=== PATIENT | male | born 1990 | race Caucasian/White ===

== ENCOUNTER 2022-06-08 21:56 | Emergency (ER) | payer SELFPAY ==
[2022-06-08 21:56] VITALS: BP 174/89; PULSE 109; RESP 18; TEMP 36.9; O2SAT 99; BMI 23.8
--- NOTE | 2022-06-08 21:58 | CRLHL7_ITS ---
For Patients: As a result of the Cures Act, medical imaging exams and procedure reports are released immediately into your electronic medical record. You may view this report before your referring provider. If you have questions, please contact your health care provider. INDICATION: Fall, ETOH. TECHNIQUE: CT cervical spine without contrast. COMPARISON: None. FINDINGS: Vertebrae: Alignment is normal. There are no fractures or suspicious bony lesions. Discs and facet joints: Disc spaces and facets are within normal limits. Extraspinal findings: Prevertebral soft tissues, visualized airway, and visualized lungs are unremarkable. IMPRESSION: Unremarkable cervical spine CT. Please note that all CT scans at this facility use dose modulation, iterative reconstruction, and/or weight-based dosing when appropriate to reduce radiation dose to as low as reasonably achievable. Dictated by Negar Allen MD @ 06/08/2022 10:46:25 PM (Electronically Signed)
--- NOTE | 2022-06-08 21:59 | CRLHL7_ITS ---
For Patients: As a result of the Cures Act, medical imaging exams and procedure reports are released immediately into your electronic medical record. You may view this report before your referring provider. If you have questions, please contact your health care provider. INDICATION: Fall, ETOH. TECHNIQUE: CT head without contrast. COMPARISON: None. FINDINGS: CSF spaces: Within normal limits for age. Brain parenchyma and extra-axial spaces: The donato-white differentiation is normal. No sign of mass, hemorrhage, or midline shift. No extra-axial fluid collection. Posterior fossa arachnoid cyst. Skull base and calvarium: The visualized paranasal sinuses and mastoid air cells demonstrate no acute or significant findings. The visualized orbits are grossly unremarkable. No skull fractures. IMPRESSION: No intracranial hemorrhage identified. No skull fractures. Please note that all CT scans at this facility use dose modulation, iterative reconstruction, and/or weight-based dosing when appropriate to reduce radiation dose to as low as reasonably achievable. Dictated by Negar Allen MD @ 06/08/2022 10:44:57 PM (Electronically Signed)
--- NOTE | 2022-06-08 21:59 | CRLHL7_ITS ---
For Patients: As a result of the Cures Act, medical imaging exams and procedure reports are released immediately into your electronic medical record. You may view this report before your referring provider. If you have questions, please contact your health care provider. INDICATION: Chest injury from fall, alcohol intoxication TECHNIQUE: Chest radiograph 1 view COMPARISON: None FINDINGS: Mediastinum: The mediastinum is normal in appearance. The heart silhouette is normal in size and morphology. Lung: Both lungs are unremarkable in appearance. No sign of pleural effusion seen. No pneumothorax is identified. Bone and Soft tissue: Unremarkable for age. IMPRESSION: 1. No acute cardiopulmonary disease is seen. Dictated by: Pierre Lambert MD @ 06/08/2022 22:42:46 (Electronically Signed)
--- NOTE | 2022-06-08 22:12 | ED_ITS ---
HPI - General Adult General Chief complaint: Fall/Minor Trauma Stated complaint: FALL & ETOH Time Seen by Provider: 06/08/22 21:58 Source: patient and EMS Mode of arrival: EMS Limitations: altered mental status (Acute alcohol intoxication) History of Present Illness HPI narrative: 32-year-old male presenting via EMS after he was found wandering the streets of [place]. Patient states that he tripped and fell on his face. He is unwilling to give any more details about what happened. He states that he had ?enough to drink today?. He states that he is sober from any other drug use. Patient denies any pain. And again is unwilling to provide any other details of what happened tonight. Related Data Home Medications Medication Instructions Recorded Confirmed epinephrine 0.3 mg/0.3 mL 0.3 ml IM Q5-15M PRN 06/08/22 06/08/22 injection, auto-injector (EpiPen) Allergies Allergy/AdvReac Type Severity Reaction Status Date / Time Nolic And Derivatives Allergy Severe Anaphylaxis Verified 06/08/22 22:14 Penicillins Allergy Unknown Verified 06/08/22 22:14 Review of Systems Status of ROS: Reports: 10 or more systems reviewed and unremarkable except as noted in History and below [facility] Medical History Patient denies medical problems Exam Narrative: Exam Narrative: Well-nourished well-developed patient in no acute distress. Alert and oriented but clearly intoxicated. Answers questions appropriately and is cooperative, however again will not give any details about what happened tonight. No tangential or magical thinking noted. Patient speaks in full sentences without needing to catch his breath. He is speaking in breathing without any difficulty. His speech is slightly slurred. GCS is 15. He does have some obvious bleeding from his upper lip and his left upper cheek just under the eye. HEENT: Normocephalic. Pupils are equally round reactive to light. Extraocular muscles are intact. Conjunctivae are moist without any icterus noted. Moist mucous membranes. Posterior pharynx is normal. I do not see any trauma to the inside of the mouth, he does have crusty blood on his lips. He also has in blood from an abrasion of the upper lip. Lastly there is an abrasion of the upper left cheek that is oozing slightly. There are no claudy lacerations noted. He has no tenderness around the orbits or the bridge of the nose. There is no septal hematoma noted. He does have an abrasion that is superficial on top of the entire nose. There is no hemotympanum noted bilaterally. Neck is soft without any lymphadenopathy or thyromegaly. No masses are appreciated. He has no tenderness to palpation of the cervical spine. He has full range of motion with flexion, extension and side way bending. However given the amount of intoxication we did go ahead and place him in a cervical collar. Cardiovascular: Heart is regular rate and rhythm S1 and S2 are present without any murmurs. Lungs: Clear to auscultation bilaterally no wheezes rhonchi or rales are appreciated. Patient takes deep breaths without any discomfort. He has no tenderness to palpation of the anterior or lateral chest wall. Abdomen: Soft and nontender nondistended with normal bowel sounds. No guarding or rebound. No masses or organomegaly appreciated. Extremities: Bilateral lower extremities are without edema. Normal DP and PT pulses. He does have superficial abrasions to both knees. He also has abrasions to the top of both big toes. He has dried blood between the remainder of the toes with no evidence of broken skin. Skin: Well perfused. Back: Normal appearance. No tenderness over the cervical, thoracic or lumbar spine. Const: Vital Signs, click to edit/add: Vital Signs - 24 hr 06/08/22 21:56 Temperature 98.4 F Pulse Rate [Left P ulse Oximeter] 109 H Respiratory Rate 18 Blood Pressure [Ri ght Upper Arm] 174/89 H Pulse Oximetry 99 Oxygen Delivery Me thod Room Air Course Course Hospital Course: We proceeded with head CT, cervical spine CT, facial bones CT, and chest x-ray. All were unremarkable. Cervical collar was removed without incident. EKG, read by me, shows normal sinus rhythm with a pulse of 97. Labs showed elevated LFTs and blood alcohol of 0.39. UA and UDS pending at time of dictation. Vital Signs Vital signs: Initial Vital Signs Temperature 98.4 F 06/08/22 21:56 Temperature Source Temporal Artery Scan 06/08/22 21:56 Pulse Rate 109 H 06/08/22 21:56 Pulse Rhythm 06/08/22 21:56 Respiratory Rate 18 06/08/22 21:56 Blood Pressure 174/89 H 06/08/22 21:56 Blood Pressure Mean 117 06/08/22 21:56 Blood Pressure Position Semi-Fowlers 06/08/22 21:56 Pulse Oximetry 99 06/08/22 21:56 Oxygen Delivery Method 06/08/22 21:56 Vital Signs Temperature 98.4 F 06/08/22 21:56 Pulse Rate 109 H 06/08/22 21:56 Respiratory Rate 18 06/08/22 21:56 Blood Pressure 174/89 H 06/08/22 21:56 Pulse Oximetry 99 06/08/22 21:56 Oxygen Delivery Method 06/08/22 21:56 Temperature 98.4 F 06/08/22 21:56 Pulse Rate 109 H 06/08/22 21:56 Respiratory Rate 18 06/08/22 21:56 Blood Pressure 174/89 H 06/08/22 21:56 Pulse Oximetry 99 06/08/22 21:56 Oxygen Delivery Method 06/08/22 21:56 Medical Decision Making MDM Narrative Medical decision making narrative: 32-year-old male with acute alcohol intoxication status post fall, circumstances are unclear. Patient will remain in the ER for observation, IV fluids. Care transferred to oncoming physician. Lab Data Labs: Lab Results 06/08/22 06/08/22 Range/Units 22:40 22:40 WBC 7.29 (4.50-11.00) K/uL RBC 4.98 (4.30-5.90) m/uL Hgb 16.8 (13.5-17.5) gm/dL Hct 48.5 (37.0-53.0) % MCV 97 (80-100) fL MCH 34 (26-34) pg MCHC 35 (32-36) gm/dL RDW Coeff of Yessica 12.5 (11.5-15.5) % Plt Count 176 (140-440) K/uL Neut % (Auto) 64.2 (42.0-72.0) % Lymph % (Auto) 24.4 (20-44) % [place] % (Auto) 6.6 (0.0-11.0) % Eos % (Auto) 3.3 (0.0-7.0) % Baso % (Auto) 0.7 (0.0-3.0) % Neut # (Auto) 4.68 (1.7-7.0) K/uL Lymph # (Auto) 1.78 (0.90-2.90) K/uL [place] # (Auto) 0.50 (0.00-0.90) K/UL Eos # (Auto) 0.24 (0.00-0.50) K/uL Baso # (Auto) 0.05 (0.00-0.30) K/uL Abs Immat Gran (auto) 0.06 (0.00-0.30) K/uL Sodium 146 (135-149) mmol/L Potassium 3.7 (3.6-5.1) mmol/L Chloride 108 (96-114) mmol/L Carbon Dioxide 22 (20-32) mmol/L BUN 8 (5-24) mg/dL Creatinine 0.7 (0.5-1.5) mg/dL Estimated Creat Clear 179.40 Estimated GFR 127 ml/min Glucose 121 H (60-115) mg/dL Calcium 9.2 (8.4-10.6) mg/dL Total Bilirubin 1.6 H (0.1-1.5) mg/dL Direct Bilirubin 0.6 H (0.0-0.5) mg/dL AST 279 H (12-35) U/L ALT 200 H (4-50) U/L Alkaline Phosphatase 127 (40-150) U/L Total Protein 8.9 H (6.0-8.3) g/dL Albumin 5.2 H (3.3-5.0) g/dL Salicylates < 1.0 L (1.0-10) mg/dL Acetaminophen < 10.0 L (10.0-30.0) ug/mL Ethyl Alcohol 0.39 H* (0.01-0.03) % Imaging Data Chest x-ray: Attestation: I have reviewed the pertinent imaging results. My impression: No acute findings Radiologist's impression: TECHNIQUE: Chest radiograph 1 view COMPARISON: None FINDINGS: Mediastinum: The mediastinum is normal in appearance. The heart silhouette is normal in size and morphology. Lung: Both lungs are unremarkable in appearance. No sign of pleural effusion seen. No pneumothorax is identified. Bone and Soft tissue: Unremarkable for age. IMPRESSION: 1. No acute cardiopulmonary disease is seen. CT scan - head: Attestation: I have reviewed the pertinent imaging results. Radiologist's impression: TECHNIQUE: CT head without contrast. COMPARISON: None. FINDINGS: CSF spaces: Within normal limits for age. Brain parenchyma and extra-axial spaces: The donato-white differentiation is normal. No sign of mass, hemorrhage, or midline shift. No extra-axial fluid collection. Posterior fossa arachnoid cyst. Skull base and calvarium: The visualized paranasal sinuses and mastoid air cells demonstrate no acute or significant findings. The visualized orbits are grossly unremarkable. No skull fractures. IMPRESSION: No intracranial hemorrhage identified. No skull fractures. Cervical spine CT: Attestation: I have reviewed the pertinent imaging results. Radiologist's impression: TECHNIQUE: CT cervical spine without contrast. COMPARISON: None. FINDINGS: Vertebrae: Alignment is normal. There are no fractures or suspicious bony lesions. Discs and facet joints: Disc spaces and facets are within normal limits. Extraspinal findings: Prevertebral soft tissues, visualized airway, and visualized lungs are unremarkable. IMPRESSION: Unremarkable cervical spine CT. Facial bones CT: Attestation: I have reviewed the pertinent imaging results. Radiologist's impression: TECHNIQUE: CT maxillofacial without contrast. COMPARISON: None. FINDINGS: Facial bones: No fractures or bone lesions. Specifically the nasal bones, temporomandibular joints, maxilla and mandible appear intact. Orbits and globes: Unremarkable. Globes are intact. No sign of intraorbital hem orrhage or emphysema. Sinuses: No acute or significant findings. Soft tissues: Unremarkable. IMPRESSION: Negative facial CT. No sign of acute injury. Discharge Plan Discharge Prescriptions: No Action epinephrine [EpiPen] 0.3 mg/0.3 mL auto-injector 0.3 ml IM Q5-15M PRN Rx Instructions: do not exceed 3 doses per episode
--- NOTE | 2022-06-08 22:14 | CRLHL7_ITS ---
For Patients: As a result of the Cures Act, medical imaging exams and procedure reports are released immediately into your electronic medical record. You may view this report before your referring provider. If you have questions, please contact your health care provider. INDICATION: Facial injury. TECHNIQUE: CT maxillofacial without contrast. COMPARISON: None. FINDINGS: Facial bones: No fractures or bone lesions. Specifically the nasal bones, temporomandibular joints, maxilla and mandible appear intact. Orbits and globes: Unremarkable. Globes are intact. No sign of intraorbital hemorrhage or emphysema. Sinuses: No acute or significant findings. Soft tissues: Unremarkable. IMPRESSION: Negative facial CT. No sign of acute injury. Please note that all CT scans at this facility use dose modulation, iterative reconstruction, and/or weight-based dosing when appropriate to reduce radiation dose to as low as reasonably achievable. Dictated by Negar Allen MD @ 06/08/2022 10:48:24 PM (Electronically Signed)
[2022-06-08 23:02] LABS: Basophils Absolute Auto 0.05 K/uL (0.00-0.30); Basophils Percent Auto 0.7 % (0.0-3.0); Eosinophils Absolute Auto 0.24 K/uL (0.00-0.50); Eosinophils Percent Auto 3.3 % (0.0-7.0); Hematocrit 48.5 % (37.0-53.0); Hemoglobin* 16.8 gm/dL (13.5-17.5); Immature Granulocytes Abs Auto 0.06 K/uL (0.00-0.30); Lymphocytes Absolute Auto 1.78 K/uL (0.90-2.90); Lymphocytes Percent Auto 24.4 % (20-44); Mean Corpuscular HGB Conc 35 gm/dL (32-36); Mean Corpuscular Hemoglobin 34 pg (26-34); Mean Corpuscular Volume 97 fL (80-100); Monocytes Percent Auto 6.6 % (0.0-11.0); Neutrophils Absolute Auto 4.68 K/uL (1.7-7.0); Neutrophils Percent Auto 64.2 % (42.0-72.0); Platelet Count* 176 K/uL (140-440); RDW Coefficient of Variation % 12.5 % (11.5-15.5); Red Blood Count 4.98 m/uL (4.30-5.90); White Blood Count* 7.29 K/uL (4.50-11.00)
[2022-06-08 23:03] LABS: Slide Review Reflex No
[2022-06-08] MEDS: 0.9 % SODIUM CHLORIDE 1000 ml 1,000 ML IV (23:06)
[2022-06-08 23:26] LABS: Carbon Dioxide* 22 mmol/L (20-32); Chloride* 108 mmol/L (96-114); Potassium* 3.7 mmol/L (3.6-5.1); Sodium* 146 mmol/L (135-149)
[2022-06-08 23:27] LABS: Alanine Aminotransferase* 200 U/L (4-50); Albumin* 5.2 g/dL (3.3-5.0); Alkaline Phosphatase* 127 U/L (40-150); Aspartate Amino Transferase* 279 U/L (12-35); Bilirubin Direct* 0.6 mg/dL (0.0-0.5); Bilirubin Total* 1.6 mg/dL (0.1-1.5); Blood Urea Nitrogen* 8 mg/dL (5-24); Calcium* 9.2 mg/dL (8.4-10.6); Creatinine* 0.7 mg/dL (0.5-1.5); Estimated Glomerular Filt Rate 127 ml/min; Glucose* 121 mg/dL (60-115); Salicylate* < 1.0 mg/dL (1.0-10); Total Protein* 8.9 g/dL (6.0-8.3)
[2022-06-08 23:28] LABS: Acetaminophen* < 10.0 ug/mL (10.0-30.0); Ethanol* 0.39 % (0.01-0.03)
[2022-06-09] VITALS (35 sets, daily range): BP systolic 74–112; BP diastolic 46–78; PULSE 72–91; O2SAT 91–98
== END 2022-06-09 08:15 | disposition home or self-care (01) ==
PROVIDERS: Family Medicine; Emergency Provider Family Medicine
DX: S00.81XA Abrasion of other part of head, initial encounter (principal); W19.XXXA Unspecified fall, initial encounter; Y93.9 Activity, unspecified; Y92.9 Unspecified place or not applicable; Y99.9 Unspecified external cause status; F10.129 Alcohol abuse with intoxication, unspecified; Y90.1 Blood alcohol level of 20-39 mg/100 ml
CPT/HCPCS: 36415; 70450; 70486; 71045; 72125; 80048; 80076; 80143; 80179; 80306; 82077; 85025; 93005; 96360; 99284; 99291; G0390; J7030

== ENCOUNTER 2022-06-09 21:09 | Outpatient (CLI) | payer SELFPAY | END 2022-06-09 21:10 | disposition home or self-care (01) | LOC: AMB 06-26 02:09 | PROVIDERS: Visit Provider Family Medicine | DX: S09.93XA Unspecified injury of face, initial encounter (principal); F10.129 Alcohol abuse with intoxication, unspecified; W19.XXXA Unspecified fall, initial encounter; Y93.9 Activity, unspecified; Y92.9 Unspecified place or not applicable | CPT/HCPCS: A0425; A0427 ==